=== PATIENT | female | born 1970 | race Two or more races ===

== ENCOUNTER 2019-01-03 10:24 | Outpatient (CLI) | payer BC, OTHER ==
[2019-01-03] MEDS ORDERED: SUMA100T4 PO (11:10)
[2019-01-03] MEDS ORDERED: TRIA15CR2 TD (11:10)
[2019-01-03] MEDS ORDERED: HYOS0.1268 PO (11:10)
== END 2019-01-03 23:59 | disposition home or self-care (01) ==
LOC: STAR 10:24
PROVIDERS: ATTEND Orthopaedic Surgery
DX: Z02.9 Encounter for administrative examinations, unspecified (principal)

== ENCOUNTER 2019-01-10 09:29 | Day surgery (SDC) | payer BC, OTHER ==
[~2019-01-10] VITALS: Ht 162.6 cm; Wt 78.0 kg
[~2019-01-10 09:29] MED LIST: FENTANYL PF 100 MCG/2ML ONE; HYOS0.1268 PO; LIDOCAINE 1%-EPI 1:100K, 20ML ONE; MIDAZOLAM 1 MG/ML, 2ML ONE; ROPIvacaine/PF 0.5%, 30 ML ONE; SUMA100T4 PO; TRIA15CR2 TD
[2019-01-10] MEDS ORDERED: ACETAMINOPHEN 500 MG TABLET PO ONE (09:30)
[2019-01-10] MEDS ORDERED: SCOPOLAMINE PATCH, 1.5MG PATCH.TD72 TD ONE (09:30)
[2019-01-10] MEDS ORDERED: DIAZEPAM 5 MG TABLET PO ONE (09:30)
[2019-01-10] MEDS ORDERED: GABAPENTIN 300 MG CAPSULE PO ONE (09:30)
[2019-01-10] MEDS ORDERED: LACTATED RINGERS 1,000 ML IV SCH (10:04)
[2019-01-10] MEDS ORDERED: LIDOCAINE-MPF 1%, 2ML INFIL ONE (10:30)
[2019-01-10] MEDS ORDERED: KETOROLAC 30 MG/1 ML ONE (12:14)
[2019-01-10] MEDS ORDERED: PROPOFOL 10 MG/ML, 20ML ONE (12:31)
[2019-01-10] MEDS ORDERED: ONDANSETRON 2MG/ML, 2ML ONE (12:31)
[2019-01-10] MEDS ORDERED: CEFAZOLIN 1,000 MG ONE (12:31)
[2019-01-10] MEDS ORDERED: DEXAMETHASONE 4 MG/ML, 1ML ONE (12:31)
[2019-01-10] MEDS ORDERED: OXYcodone 5 MG/5 ML ORAL.SOL UDC ONE (13:06)
[2019-01-10] MEDS ORDERED: FENTANYL PF 100 MCG/2ML ONE (13:14)
[2019-01-10] MEDS ORDERED: PROMETHAZINE 25 MG/ML, 1ML IV PRN (13:30)
[2019-01-10] MEDS ORDERED: OXYcodone 5 MG/5 ML ORAL.SOL UDC PO PRN ×2 (13:30)
[2019-01-10] MEDS ORDERED: HYDROmorphone 2 MG/ML, 1ML IVPush PRN (13:30)
[2019-01-10] MEDS ORDERED: MEPERIDINE/PF 25MG/0.5ML IVPush PRN (13:30)
[2019-01-10] MEDS ORDERED: ONDANSETRON 2MG/ML, 2ML IV PRN (13:30)
[2019-01-10] MEDS ORDERED: FENTANYL PF 100 MCG/2ML IV PRN ×2 (13:30)
[2019-01-10] MEDS ORDERED: DIAZEPAM 5 MG/ML, 2ML IVPush PRN (13:30)
[2019-01-10] MEDS ORDERED: MIDAZOLAM 1 MG/ML, 2ML IV PRN (13:30)
== END 2019-01-10 16:10 | disposition home or self-care (01) ==
LOC: OUT 09:29
PROVIDERS: ATTEND Orthopaedic Surgery
DX: S83.282A Other tear of lateral meniscus, current injury, left knee, initial encounter (principal); S83.232A Complex tear of medial meniscus, current injury, left knee, initial encounter; M94.262 Chondromalacia, left knee; X58.XXXA Exposure to other specified factors, initial encounter; Y93.89 Activity, other specified; Y92.89 Other specified places as the place of occurrence of the external cause; Y99.8 Other external cause status; Z88.8 Allergy status to other drugs, medicaments and biological substances; Z91.040 Latex allergy status; Z72.89 Other problems related to lifestyle
CPT/HCPCS: 29880; J0690; J1100; J1885; J2250; J2405; J2704; J2795; J3010; J3490; J7120